=== PATIENT | female | born 1955 | race Caucasian/White ===

== ENCOUNTER 2022-01-01 12:38 | Outpatient (CLI) | payer MEDICARE | END 2022-01-01 12:39 | disposition home or self-care (01) | LOC: CSHCT 12:38 | PROVIDERS: ATTEND Family Medicine | DX: Z12.2 Encounter for screening for malignant neoplasm of respiratory organs (principal); F17.210 Nicotine dependence, cigarettes, uncomplicated; E07.9 Disorder of thyroid, unspecified; Z98.84 Bariatric surgery status | CPT/HCPCS: 71271 ==